=== PATIENT | male | born 1995 | race Caucasian/White ===

== ENCOUNTER 2018-06-07 21:15 | Emergency (ER) | payer OTHER ==
[~2018-06-07] VITALS: Ht 172.7 cm; Wt 70.0 kg
[2018-06-07] MEDS ORDERED: ONDANSETRON ODT 4 MG PO ONE (22:00)
--- NOTE | 2018-06-07 22:22 | NUR ---
PT HERE FOR ETOH INTOXICATION. VSS. PT SLEEPING BUT AROUSES TO VOICE. CALL LIGHT IN REACH
[2018-06-07] MEDS ORDERED: ONDANSETRON ODT 4 MG ONE ×2 (22:56→23:22)
[2018-06-07 22:59] VITALS: BP 111/64
--- NOTE | 2018-06-07 22:59 | NUR ---
PT REFUSED ZOFRAN. VSS. PT SLEEPING IN NAD. CALL RADHA DALY.
--- NOTE | 2018-06-07 23:13 | NUR ---
PT WOKE UP AND AMBULATED WITH A STEADY GAIT DOWN VICKERS. PT GIVEN A CAB VOUCHER
--- NOTE | 2018-06-07 23:29 | NUR ---
Patient given discharge instructions and they have confirmed that they understand the instructions. Patient ambulatory with steady gait AND GIVEN CAB VOUCHER.
== END 2018-06-07 23:31 | disposition home or self-care (01) ==
LOC: ED 23:27
DX: F10.120 Alcohol abuse with intoxication, uncomplicated (principal); Y90.9 Presence of alcohol in blood, level not specified
CPT/HCPCS: 99283; Q0162